=== PATIENT | female | born 1990 | race American Indian/Alaskan Native ===

== ENCOUNTER 2019-04-30 13:22 | Inpatient (IN) | payer MEDICAID ==
[2019-04-30] MEDS ORDERED: BICITRA ORAL LIQD 30ML PO ONE (14:23)
[2019-04-30] MEDS ORDERED: METOCLOPRAMIDE 10 MG/2 ML INJ IV ONE (14:23)
[2019-04-30] MEDS ORDERED: FAMOTIDINE 20 MG/2 ML INJ IV ONE (14:23)
[2019-04-30] MEDS ORDERED: OXYTOCIN 20 UNIT/1000ML DRIP 20 UNITS/1,000 ML BAG IV SCH ×2 (15:00→18:00)
[2019-04-30] MEDS ORDERED: ceFAZolin/Water 2 GM/20 ML 2 GM/20 ML SYRINGE IV NR (15:00)
[2019-04-30] MEDS ORDERED: LACTATED RINGERS 1,000 ML IV SCH (15:00)
[2019-04-30 15:20] LABS: Basophils # (Auto) 0.1 K/mm3 (0.0-0.1); Basophils % (Auto) 0.8 % (0.0-1.8); Eosinophils # (Auto) 0.1 K/mm3 (0.0-0.4); Eosinophils % (Auto) 0.8 % (0.0-4.3); Hematocrit 33.5 % (30.3-42.9); Hemoglobin 11.3 gm/dl (10.1-14.3); Lymphocytes # (Auto) 1.7 K/mm3 (1.2-5.4); Lymphocytes % (Auto) 23.5 % (13.4-35.0); Mean Corpuscular HGB Conc 34 % (30-34); Mean Corpuscular Volume 88 fl (79-97); Monocytes # (Auto) 0.6 K/mm3 (0.0-0.8); Monocytes % (Auto) 8.7 % (0.0-7.3); Platelet Count 170 K/mm3 (140-440); Red Blood Count 3.82 M/mm3 (3.65-5.03); Red Cell Distribution Width 13.9 % (13.2-15.2)
--- NOTE | 2019-04-30 15:50 | Anesthesia Consultation ---
Anesthesia Consult and Med Hx Date of service: 04/30/19 - Airway Anesthetic Teeth Evaluation: Good ROM Head & Neck: Adequate Mental/Hyoid Distance: Adequate Mallampati Class: Class II Intubation Access Assessment: Probably Good - Pulmonary Exam CTA: Yes - Cardiac Exam Cardiac Exam: RRR - Pre-Operative Health Status ASA Pre-Surgery Classification: ASA2 Proposed Anesthetic Plan: Spinal - Pulmonary Hx Smoking: No Hx Asthma: No Hx Respiratory Symptoms: No SOB: No COPD: No Home Oxygen Therapy: No Hx Pneumonia: No Hx Sleep Apnea: No - Cardiovascular System Hx Hypertension: No Hx Coronary Artery Disease: No Hx Heart Attack/AMI: No Hx Angina: No Hx Percutaneous Transluminal Coronary Angioplasty (PTCA): No Hx Cardia Arrhythmia: No Hx Pacemaker: No Hx Internal Defibrillator: No Hx Valvular Heart Disease: No Hx Heart Murmur: No Hx Peripheral Vascular Disease: No - Central Nervous System Hx Neuromuscular Disorder: No Hx Seizures: No CVA: No Hx Back Pain: Yes (last 3 days) Hx Psychiatric Problems: No - Gastrointestinal Hx Ulcer: No Hx Gastroesophageal Reflux Disease: Yes - Endocrine Hx Renal Disease: No Hx End Stage Renal Disease: No Hx Cirrhosis: No Hx Liver Disease: No Hx Insulin Dependent Diabetes: No Hx Non-Insulin Dependent Diabetes: No Hx Thyroid Disease: No Hx Hypothyroidism: No Hx Hyperthyroidism: No - Hematic Hx Anemia: Yes (taking iron) Hx Sickle Cell Disease: No - Other Systems Hx Alcohol Use: No Hx Substance Use: No Hx Cancer: No Hx Obesity: No
[2019-04-30] MEDS ORDERED: ONDANSETRON 4 MG/2 ML INJ IV PRN ×2 (15:52→17:48)
[2019-04-30] MEDS ORDERED: HYDROmorphone 1 MG/1 ML INJ IV PRN (15:52)
--- NOTE | 2019-04-30 15:52 | Anesthesia Day of Surgery ---
Anesthesia Day of Surgery - Day of Surgery Patient Examined: Yes Patient H&P Reviewed: Yes Patient is NPO: Yes Beta Blockers: No Cardiac Clearance: No Pulmonary Clearance: No Ron's Test: N/A
--- NOTE | 2019-04-30 16:18 | History and Physical Report ---
History of Present Illness Date of examination: 04/30/19 Date of admission: 04/30/19 13:24 Chief complaint: at 37+2wks. here for a delivery for arrythmia. History of present illness: at 37+2wks. here for a delivery for arrythmia. Past History Past Medical History: no pertinent history - Obstetrical History Expected Date of Delivery: 05/18/19 Actual Gestation: 37 Week(s) 3 Day(s) : 2 Para: 1 Medications and Allergies Allergies Allergy/AdvReac Type Severity Reaction Status Date / Time ibuprofen Allergy Intermediate Swelling Verified 04/30/19 14:22 Home Medications Medication Instructions Recorded Confirmed Last Taken Type No Known Home Medications [No 04/30/19 04/30/19 Unknown History Reported Home Medications] Active Meds: Active Medications Hydromorphone HCl (Dilaudid) 0.5 mg IV Q5M PRN PRN Reason: BREAK Stop: 04/30/19 23:00 Oxytocin/Sodium Chloride (Pitocin/Ns 20 Unit/1000ml Drip) 20 units in 1,000 mls @ 0 mls/hr IV TITR WERO Lactated Ringer's (Lactated Ringers) 1,000 mls @ 2,250 mls/hr IV PREOP WERO Stop: 05/01/19 15:27 Last Admin: 04/30/19 15:00 Dose: 2,250 mls/hr Documented by: Cefazolin Sodium (Ancef/Sterile Water 2 Gm/20 Ml) 2 gm in 20 mls @ 80 mls/hr IV PREOP NR; Protocol Stop: 04/30/19 23:59 Ondansetron HCl (Zofran) 4 mg IV Q8H PRN PRN Reason: Nausea And Vomiting Sodium Chloride (Sodium Chloride Flush Syringe 10 Ml) 10 ml IV PRN WERO Review of Systems All systems: negative - Vital Signs Vital signs: Vital Signs Temp Resp 98.3 F 18 04/30/19 15:36 04/30/19 15:36 Temp Pulse Resp BP Pulse Ox 98.3 F 18 04/30/19 15:36 04/30/19 15:36 - Physical Exam Lungs: Positive: Normal air movement Abdomen: Positive: normal appearance, soft, distention. Negative: tenderness Uterus: Positive: enlarged, normal contour. Negative: tender Extremities: Positive: normal Deep Tendon Reflex Grade: Normal +2 - Obstetrical FHR: auscultation normal, category 1 Uterine Contraction Pattern: Irregular Results Result Diagrams: 04/30/19 14:40 Abnormal lab results 04/30/19 Range/Units 14:40 Callahan % (Auto) 8.7 H (0.0-7.3) % All other labs normal. Assessment and Plan - Patient Problems (1) Term Current Visit: Yes Status: Acute (2) cardiac arrhythmia Current Visit: Yes Status: Acute Plan to address problem: On the recommendations of MFM at [facility] patient consented to delivery. All risks associated with procedure were discussed and patient's questions were answered.
[2019-04-30] MEDS ORDERED: ONDANSETRON 4 MG/2 ML INJ ONE (16:19)
[2019-04-30] MEDS ORDERED: DEXMEDETOMIDINE 200 MCG/2 ML VIAL IV ONE (16:19)
[2019-04-30] MEDS ORDERED: SODIUM CHLORIDE 0.9% IRR 1,500 ML BOTTLE IR ONE (16:29)
[2019-04-30] MEDS ORDERED: WATER FOR IRRIG STERILE 1,500 ML BOTTLE IR ONE (16:30)
[2019-04-30] MEDS ORDERED: LANOLIN/ZINC/DIMETHICONE (LANSINOH) 7 GM TP PRN (17:48)
[2019-04-30] MEDS ORDERED: ACETAMINOPHEN 325 MG TAB PO PRN (17:48)
[2019-04-30] MEDS ORDERED: NALOXONE 0.4 MG/1 ML INJ IV PRN (17:48)
[2019-04-30] MEDS ORDERED: PHENYLEPHRINE/NS 1,000 MCG/10 ML SYRINGE (OR USE) IV ONE (17:48)
[2019-04-30] MEDS ORDERED: MORPHINE 4 MG/1 ML INJ IV PRN (17:48)
[2019-04-30] MEDS ORDERED: WITCH HAZEL/ GLYCERIN PAD TP PRN (17:48)
--- NOTE | 2019-04-30 17:57 | Operative Report ---
Operative Report Operative Report: Date of surgery: 04/30/2019 Preoperative diagnoses: arrhythmia, IUGR Postoperative diagnoses: The same. Operation: Lower segment transverse delivery Surgeon:Frieda Terrazas MD Orthodontic Treatment Coordinator: GENNARO Reyes Anesthesia: Spinal block Estimated blood loss: 1800 mL Complications: None Findings: There was a live baby girl in cephalic presentation. weight was 5 lbs. 12 oz. with Apgars of 8/8. Both ovaries and fallopian tubes were grossly normal. The uterus was also grossly normal. Procedure in detail: The patient was taken to the operating room and given a spinal block. Patient was placed in the straight supine position and a Mueller catheter was inserted. The patient was prepped in the abdomen. The drapes were placed. A timeout was done. With the go ahead from the invoicing specialist, a Pfannenstiel incision was made. This incision was carried across the subcutaneous layer to the fascia which was also divided transversely. The recti abdominis muscle flaps were stripped from the fascia using a combination of blunt and sharp dissections. The muscles were in the midline to gain access to the anterior parietal peritoneum which was divided after excluding any underlying viscera. The access to the peritoneal cavity was then widened by manual stretching. The bladder blade was applied. The utero vesicle peritoneal flap was divided transversely allowing the bladder to be displaced caudally. The uterine incision was placed in the lower segment transversely. The uterine incision was carried to the decidual layer. The uterine incision was extended on both sides using the bandage scissors. The amniotic sac was ruptured with clear fluid. The head was lifted out of the false maternal pelvis and delivered through the incision using fundal pressure. The airways were bulb suctioned beginning with the mouth. Continuing fundal pressure combined with traction on the mandibular processes of the jaw delivered the rest of the baby. The umbilical cord was double clamped and divided. The baby was carefully transferred to the pediatric team. The placenta was manually removed from the uterine cavity. The uterine cavity was explored and was empty of any placental remnants. The uterine incision was repaired in 2 layers with #1 Vicryl. The surgical line on the uterus was hemostatic. Blood and clots were cleared from the peritoneal cavity. The anterior parietal peritoneum was repaired with #1 Vicryl. The fascia was repaired with #1 Vicryl. The subcutaneous layer was made hemostatic using the Bovie before the skin was closed subcuticularly with 4-0 Vicryl. There were no complications. The estimated blood loss was 1800 mL. All sponges and instrument counts were correct. Patient was safely transferred to the recovery room.
--- NOTE | 2019-04-30 17:57 | Post Anesthesia Evaluation ---
- Post Anesthesia Evaluation Patient Participated: Yes Airway Patent: Yes Stable Respiratory Function: Yes Nausea/Vomiting: Yes Temp > 96.8F: Yes Pain Manageable: Yes Adequeate Hydration: Yes Anesthesia Complications: No Block Receding Appropriately: Yes Patient on Ventilator: No
[2019-04-30] MEDS ORDERED: D5W/LACTATED RINGERS 1,000 ML IV SCH (23:00)
[2019-05-01] MEDS: ceFAZolin/NS 1 GM/50 ML 1 GM/50 ML BAG IV SCH ×2 (02:30→09:56)
[2019-05-01] MEDS: HYDROcodone/ACETAMINOPHEN 5-325 MG TAB PO PRN ×3 (03:21→21:11)
[2019-05-01 06:45] LABS: Hematocrit 30.8 % (30.3-42.9); Hemoglobin 10.2 gm/dl (10.1-14.3)
[2019-05-01] MEDS: FERROUS SULFATE 325 MG TAB PO SCH (09:56)
[2019-05-01] MEDS: PRENATAL VIT27-FE FUMARATE-FOLIC ACID VIT TAB PO SCH (09:56)
--- NOTE | 2019-05-01 15:06 | Post Anesthesia Evaluation ---
- Post Anesthesia Evaluation Patient Participated: Yes Airway Patent: Yes Stable Respiratory Function: Yes Nausea/Vomiting: No Temp > 96.8F: Yes Pain Manageable: Yes Adequeate Hydration: Yes Anesthesia Complications: No Block Receding Appropriately: Yes Patient on Ventilator: No
--- NOTE | 2019-05-01 19:10 | Progress Note ---
Assessment and Plan - Patient Problems (1) Term Current Visit: Yes Status: Acute (2) cardiac arrhythmia Current Visit: Yes Status: Acute (3) Postoperative state Current Visit: Yes Status: Acute Plan to address problem: Will continue present mgt. Subjective - Subjective Date of service: 05/01/19 Principal diagnosis: Status post day 1. Interval history: at 37+2wks. here for a delivery for arrythmia. Patient reports: appetite normal, voiding normally, pain well controlled, flatus, ambulating normally, no dizzy ambulation : doing well, in NICU Objective - Vital Signs Latest vital signs: Vital Signs Temp Pulse Resp BP Pulse Ox 05/01/19 16:29 99.0 F 88 20 113/74 99 05/01/19 12:17 98.7 F 82 20 113/78 100 05/01/19 09:56 20 05/01/19 07:18 98.5 F 66 20 111/71 100 05/01/19 04:15 98.9 F 76 20 112/72 97 05/01/19 03:21 18 04/30/19 22:30 18 04/30/19 20:44 97.8 F 20 107/72 Intake and Output 05/01/19 05/01/19 05/01/19 07:59 15:59 23:59 Intake Total 530 240 Output Total 1800 900 Balance -1270 -660 Intake: IV 50 ANCEF/NS 1 GM/50 ML 1 gm 50 In 50 ml @ 100 mls/hr IV Q8H [facility] Rx#:[id number] Oral 480 240 Output: Urine 1800 900 Indwelling Catheter 900 500 Uretheral (Mueller) 900 Void 400 Other: Total, Intake Amount 480 120 Total, Output Amount 900 400 # Voids Indwelling Catheter 1 Void 1 - Exam Lungs: Present: Normal air movement Abdomen: Present: normal appearance, normal bowel sounds Uterus: Present: normal Deep Tendon Reflex Grade: Normal +2 Incision: Present: normal, dry, intact
[2019-05-01] MEDS ORDERED: MAGNESIUM HYDROXIDE (MOM) ORAL LIQD UDC PO PRN ×2 (23:01→23:02)
[2019-05-01] MEDS ORDERED: SIMETHICONE 80 MG CHEW TAB PO PRN (23:03)
[2019-05-02] MEDS: HYDROcodone/ACETAMINOPHEN 5-325 MG TAB PO PRN ×4 (03:22→22:26)
[2019-05-02] MEDS: PRENATAL VIT27-FE FUMARATE-FOLIC ACID VIT TAB PO SCH (09:35)
[2019-05-02] MEDS: FERROUS SULFATE 325 MG TAB PO SCH (09:35)
--- NOTE | 2019-05-02 18:36 | Progress Note ---
Assessment and Plan - Patient Problems (1) Term Current Visit: Yes Status: Acute (2) cardiac arrhythmia Current Visit: Yes Status: Acute (3) Postoperative state Current Visit: Yes Status: Acute Plan to address problem: S/Post day 2. Doing very well. Present mgt to continue. Subjective - Subjective Date of service: 05/02/19 Principal diagnosis: Status post day 2. Interval history: at 37+2wks. here for a delivery for arrythmia. Patient reports: appetite normal, voiding normally, pain well controlled, flatus, bowel movement, ambulating normally : doing well Objective - Vital Signs Latest vital signs: Vital Signs Temp Pulse Resp BP BP Pulse Ox 05/02/19 15:15 98.4 F 80 20 116/73 05/02/19 08:13 98.2 F 82 18 98/57 05/02/19 04:30 98.6 F 89 20 96/55 97 05/02/19 03:22 18 05/02/19 02:04 98.4 F 80 18 104/65 99 05/01/19 21:11 18 Intake and Output 05/02/19 05/02/19 05/02/19 07:59 15:59 23:59 Intake Total 240 480 Balance 240 480 Intake: Oral 240 480 Other: Total, Intake Amount 240 120 # Voids Void 1 1 - Exam Lungs: Present: Normal air movement Abdomen: Present: normal appearance, soft, normal bowel sounds. Absent: tenderness Uterus: Present: normal, firm Extremities: Present: normal Deep Tendon Reflex Grade: Normal +2 Incision: Present: normal, dry, intact
[2019-05-03] MEDS: FERROUS SULFATE 325 MG TAB PO SCH (09:30)
[2019-05-03] MEDS: HYDROcodone/ACETAMINOPHEN 5-325 MG TAB PO PRN (09:31)
[2019-05-03] MEDS: PRENATAL VIT27-FE FUMARATE-FOLIC ACID VIT TAB PO SCH (09:31)
--- NOTE | 2019-05-03 13:50 | Progress Note ---
Assessment and Plan - Patient Problems (1) S/P primary low transverse Current Visit: Yes Status: Acute Plan to address problem: POD 3 - stable Discharge to home today Follow-up at [facility] as needed or in 1 week for incision check (2) Single live Current Visit: Yes Status: Acute Subjective - Subjective Date of service: 05/03/19 Principal diagnosis: POD #3, s/p Primary LTCS Interval history: see H&P, Operative Report and PP/CIGARETTE STAMPER Progress Notes Patient reports: appetite normal, voiding normally, pain well controlled, flatus, ambulating normally, no dizzy ambulation, no bowel movement [place]: doing well Objective - Vital Signs Latest vital signs: Vital Signs Temp Pulse Resp BP BP Pulse Ox 05/03/19 07:33 98.7 F 81 20 116/72 100 05/03/19 01:22 97.8 F 79 18 109/70 100 05/02/19 15:15 98.4 F 80 20 116/73 Intake and Output 05/02/19 05/03/19 05/03/19 23:59 07:59 15:59 Intake Total 240 Balance 240 Intake: Oral 240 Other: Total, Intake Amount 240 Voiding Method Toilet # Voids Void 1 1 - Exam Cardiovascular: Present: Regular rate Lungs: Present: Clear to auscultation, Normal air movement Abdomen: Present: normal appearance, soft Vulva: both: normal Uterus: Present: normal, firm, fundal height below umbilicus Extremities: Present: normal Incision: Present: normal, dry, intact, other (steri strips in place) Comments: scant lochia
--- NOTE | 2019-05-03 13:53 | Discharge Summary ---
Providers - Providers Date of Admission: 04/30/19 13:24 Date of discharge: 05/03/19 Attending physician: TERESA SO MD Primary care physician: BROOKS CORRAL Hospitalization Reason for admission: induction of labor, IUP at term Delivery: Procedure: primary low transverse Episiotomy: none Laceration: none Incision: normal, dry, intact, other (steri strips in place) Other procedures: none complications: none Discharge diagnosis: IUP at term delivered [place] baby: female Hospital course: Uncomplicated Condition at discharge: Stable Disposition: DC-01 TO HOME OR SELFCARE - Discharge Diagnoses (1) S/P primary low transverse Status: Acute (2) Single live Status: Acute Plan - Discharge Medications Prescriptions: HYDROcodone/APAP 5-325 [[place] 5/325] 1 - 2 each PO Q4HR PRN #30 tablet PRN Reason: Pain - Provider Discharge Summary Activity: routine, no sex for 6 weeks, no heavy lifting 4 weeks, no strenuous exercise Diet: routine Instructions: routine Additional instructions: [] Smoking cessation referral if applicable(refer to patient education folder for contact #) [] Refer to [facility]'s [facility] Booklet Call your doctor immediately for: * Fever > 100.5 * Heavy vaginal bleeding ( >1 pad per hour) * Severe persistent headache * Shortness of breath * Reddened, hot, painful area to leg or breast * Drainage or odor from incision. * Keep incision clean and dry at all times and follow doctor's instructions regarding bathing/showering - Follow up plan Follow up: BROOKS CORRAL MD [Primary Care Provider] - 7 Days (Follow-up at [facility] as needed or in 1 week for incision check)
[2019-05-03 17:07] VITALS: BP 110/71
== END 2019-05-03 16:40 | disposition home or self-care (01) | DRG 765 ==
LOC: APU 13:24 → OB 20:50
PROVIDERS: ADMIT Obstetrics & Gynecology; ATTEND Obstetrics & Gynecology
PROC: 10D00Z1 Extraction of Products of Conception, Low, Open Approach (ICD-10-PCS; principal; 2019-04-30)
DX: O76 Abnormality in fetal heart rate and rhythm complicating labor and delivery (principal); O36.5930 Maternal care for other known or suspected poor fetal growth, third trimester, not applicable or unspecified; O99.62 Diseases of the digestive system complicating childbirth; K21.9 Gastro-esophageal reflux disease without esophagitis; Z3A.37 37 weeks gestation of pregnancy; Z37.0 Single live birth
CPT/HCPCS: 36415; 85014; 85018; 85025; 86850; 86900; 86901; 88307; G0378; J0690; J2270; J2370; J2405; J2590; J2765; J3490; J7120; J7121